=== PATIENT | male | born 1985 | race Caucasian/White ===

== ENCOUNTER 2021-04-16 08:03 | Emergency (ER) | payer MEDICAID ==
[2021-04-16 08:20] VITALS: BP 151/98; PULSE 91
--- NOTE | 2021-04-16 08:30 | EDM.PDOC ---
<Oni Sharp - Last Filed: 04/16/21 08:32> ED HPI GENERAL MEDICAL PROBLEM - General Chief Complaint: Respiratory Problem Stated Complaint: SINUS INFECTION/BLOODY NOSE COUGH Time Seen by Provider: 04/16/21 08:15 Source of Information: Reports: Patient, RN History Limitations: Reports: No Limitations - History of Present Illness INITIAL COMMENTS - FREE TEXT/NARRATIVE: Patient is a 35-year-old male with a past medical history of depression/anxiety who presents to the emergency department for shortness of breath and cough. Patient notes that his cough started 04/14 and shortness of breath started 04/15. Does note that shortness of breath is worse with exertion. Improved with rest. He has not been taking anything for his symptoms. Other symptoms include diarrhea, bloody nose, panic attack and sore throat. Patient is not vaccinated for Covid. He has had a positive exposure to Covid. Denies fever, chills, chest pain, palpitations, nausea, emesis, body aches, and loss of taste/smell. - Related Data Allergies Allergy/AdvReac Type Severity Reaction Status Date / Time No Known Allergies Allergy Verified 04/16/21 08:21 Home Meds: Home Meds . [No Known Home Meds] 11/13/15 [History] Past Medical History - Past Health History Medical/Surgical History: Denies Medical/Surgical History - Past Surgical History GI Surgical History: Reports: Appendectomy Social & Family History - Family History Family Medical History: No Pertinent Family History - Caffeine Use Caffeine Use: Reports: Coffee, Energy Drinks, Soda - Living Situation & Occupation Living situation: Reports: with Family Occupation: Employed ED ROS GENERAL - Review of Systems Review Of Systems: See Below Constitutional: Reports: No Symptoms. Denies: Fever, Chills, Fatigue, Night Sweats HEENT: Reports: Nosebleed Respiratory: Reports: Shortness of Breath, Cough, Sputum. Denies: Hemoptysis Cardiovascular: Reports: No Symptoms Endocrine: Reports: No Symptoms GI/Abdominal: Reports: Diarrhea, Decreased Appetite. Denies: Abdominal Pain, Anorexia, Black Stool, Bloody Stool : Reports: No Symptoms Musculoskeletal: Reports: No Symptoms Skin: Reports: No Symptoms Neurological: Reports: No Symptoms Psychiatric: Reports: No Symptoms Hematologic/Lymphatic: Reports: No Symptoms Immunologic: Reports: No Symptoms ED EXAM, GENERAL - Physical Exam Exam: See Below Exam Limited By: No Limitations General Appearance: Alert, WD/WN, No Apparent Distress Eye Exam: Bilateral Eye: EOMI, PERRL Ears: Normal External Exam, Normal Canal, Hearing Grossly Normal, Normal TMs Respiratory/Chest: No Respiratory Distress, No Accessory Muscle Use, Chest Non- Tender, Wheezing Cardiovascular: Normal Peripheral Pulses, Regular Rate, Rhythm, No Edema, No Gallop, No JVD, No Murmur, No Rub GI/Abdominal: Normal Bowel Sounds, Soft, Non-Tender Neurological: Alert, Oriented, Normal Cognition Psychiatric: Normal Affect, Normal Mood Skin Exam: Warm, Dry, Intact, Normal Color, No Rash Lymphatic: No Adenopathy Departure - Departure Disposition: Home, Self-Care 01 Clinical Impression: Upper respiratory infection with cough and congestion - Discharge Information Instructions: Viral Respiratory Infection, Viral Illness, Adult Forms: ED Department Discharge Additional Instructions: Rx: Loratadine D-12HR Rx: Tessalon Perles 200mg Follow up in clinic if not improving in 7 to 10 days. Sepsis Event Note (ED) - Evaluation Sepsis Screening Result: No Definite Risk <Salazar Flores - Last Filed: 04/16/21 09:47> Course - Vital Signs Last Recorded V/S: Last Vital Signs Temp 98.7 F 04/16/21 08:15 Pulse 91 04/16/21 08:15 Resp 16 04/16/21 08:15 BP 151/98 H 04/16/21 08:15 Pulse Ox 98 04/16/21 08:15 - Orders/Labs/Meds Orders: Active Orders 24 hr Category Date Time Status Chest 2V [CR] Stat Exams 04/16/21 09:13 Taken Sinus Comp Min 3V [CR] Stat Exams 04/16/21 09:13 Taken Labs: Laboratory Tests 04/16/21 Range/Units 08:29 SARS-CoV-2 RNA ([place]) Negative (NEGATIVE) - Radiology Interpretation Free Text/Narrative:: XR Chest: no consolidation, see Rad. report. XR Sinus: normal study, see Rad. report. - Re-Assessments/Exams Free Text/Narrative Re-Assessment/Exam: 04/16/21 I saw and evaluated the patient. Discussed with resident and agree with residents findings and plan as documented in the residents note. Departure - Departure Time of Disposition: 09:45 Condition: Good - Discharge Information *PRESCRIPTION DRUG MONITORING PROGRAM REVIEWED*: Not Applicable *COPY OF PRESCRIPTION DRUG MONITORING REPORT IN PATIENT ROSE: Not Applicable Sepsis Event Note (ED) - Focused Exam Vital Signs: Vital Signs Temp Pulse Resp BP Pulse Ox 04/16/21 08:15 98.7 F 91 16 151/98 H 98 - My Orders Last 24 Hours: My Active Orders 04/16/21 09:13 Chest 2V [CR] Stat Sinus Comp Min 3V [CR] Stat - Assessment/Plan Last 24 Hours: My Active Orders 04/16/21 09:13 Chest 2V [CR] Stat Sinus Comp Min 3V [CR] Stat
--- NOTE | 2021-04-16 09:54 | CR ---
PROCEDURE INFORMATION: Exam: XR Chest Exam date and time: 04/16/2021 9:22 AM Age: 35 years old Clinical indication: Cough TECHNIQUE: Imaging protocol: XR of the chest. Views: 2 views. COMPARISON: No relevant prior studies available. FINDINGS: Lungs: Unremarkable. No consolidation. Pleural spaces: Unremarkable. No pleural effusion. No pneumothorax. Heart/Mediastinum: Unremarkable. No cardiomegaly. Bones/joints: Unremarkable. IMPRESSION: No acute findings.
--- NOTE | 2021-04-16 09:57 | CR ---
PROCEDURE INFORMATION: Exam: XR Sinus Exam date and time: 04/16/2021 9:25 AM Age: 35 years old Clinical indication: Maxilla pain; Additional info: Sinus pain/congestion TECHNIQUE: Imaging protocol: XR of the sinuses and paranasal structures. Views: Minimum of 3 views. COMPARISON: No relevant prior studies available. FINDINGS: Sinuses: Moderate mucosal thickening within the maxillary sinuses bilaterally. Bones/joints: No fracture. Soft tissues: Unremarkable. IMPRESSION: Moderate mucosal thickening within the maxillary sinuses bilaterally.
== END 2021-04-16 09:59 | disposition home or self-care (01) ==
LOC: DL.ED 08:03
DX: J06.9 Acute upper respiratory infection, unspecified (principal); Z20.822 Contact with and (suspected) exposure to COVID-19
CPT/HCPCS: 71046; 99283-25; U0002

== ENCOUNTER 2025-02-18 17:21 | Emergency (ER) | payer BC ==
[2025-02-18 17:36] VITALS: BP 124/84; PULSE 70
[2025-02-18] MEDS: Lidocaine 2% Viscous Solution 15 ML UD PO ONE (17:40)
[2025-02-18] MEDS: Amoxicillin/Clavulanate K 875-125 MG Tab PO ONE (17:52)
== END 2025-02-18 17:55 | disposition home or self-care (01) ==
LOC: DL.ED 17:21
DX: K04.7 Periapical abscess without sinus (principal)
CPT/HCPCS: 64400; 99282; A9270; J3490